=== PATIENT | male | born 1960 | race Caucasian/White ===

== ENCOUNTER 2021-04-10 20:03 | Inpatient (IN) | payer OTHER ==
[~2021-04-10] VITALS: Ht 188 cm; Wt 124.3 kg
[2021-04-10 20:37] VITALS: BP 114/61
[2021-04-10 20:44] LABS: ABSOLUTE EOSINOPHILS 0.1 thou/uL (0.0-0.7); ABSOLUTE LYMPHOCYTES 2.8 thou/uL (0.8-5.3); ABSOLUTE MONOCYTES 0.5 thou/uL (0.0-1.2); ABSOLUTE NEUTROPHILS 3.1 thou/uL (1.6-8.1); BASOPHILS 0.3 %; EOSINOPHILS 1.1 %; HEMATOCRIT 32.9 % (42.0-52.0); HEMOGLOBIN 10.8 gm/dL (14.0-18.0); LYMPHOCYTES 43.2 %; MCH 32.6 pg (26.0-34.0); MCHC 32.9 g/dL (28.0-37.0); MONOCYTES 7.1 %; MPV 7.6 fl. (7.2-11.1); NUCLEATED RBCS 0 /100WBC; PLATELET COUNT* 208 thou/uL (150-400); POLYS 48.3 %; RBC 3.32 mil/uL (4.50-6.00); RDW-CV 15.2 % (10.5-14.5); WBC 6.5 thou/uL (4.0-11.0)
[2021-04-10] MEDS ORDERED: LOPRESSOR50 MG PO (20:44)
[2021-04-10] MEDS ORDERED: KLOR-CON M2020 MEQ PO (20:44)
[2021-04-10] MEDS ORDERED: LIPITOR40 MG PO (20:45)
[2021-04-10] MEDS ORDERED: ZETIA10 MG PO (20:45)
[2021-04-10] MEDS ORDERED: FUROSEMIDE 40 M40 M1 PO (20:46)
[2021-04-10] MEDS ORDERED: COZAAR 25 MG TA25 M2 PO (20:47)
[2021-04-10] MEDS ORDERED: CORTISPORIN OTI10 ML OTIC (20:48)
[2021-04-10] MEDS ORDERED: LEVO-T75 MCG PO (20:48)
[2021-04-10] MEDS ORDERED: SINEMET 25-1001 EAC1 PO (20:48)
[2021-04-10 20:50] LABS: CALCIUM 8.8 mg/dL (8.5-10.1); CREATININE 1.5 mg/dL (0.6-1.3); POTASSIUM 4.3 mmol/L (3.5-5.1)
[2021-04-10 20:52] LABS: PROTIME 10.7 Seconds (9.20-11.50)
[2021-04-10 21:00] LABS: ALBUMIN 4.3 g/dL (3.4-5.0); TOTAL BILIRUBIN 0.5 mg/dL (<0.1-1.0); TOTAL PROTEIN 7.9 g/dL (6.4-8.2)
[2021-04-10 23:30] VITALS: BP 147/86
[2021-04-11] VITALS (7 sets, daily range): BP systolic 119–186; BP diastolic 58–101
[2021-04-11 04:29] LABS: URINE BILIRUBIN NEGATIVE (Negative); URINE BLOOD TRACE (Negative); URINE CLARITY CLEAR; URINE COLOR YELLOW; URINE GLUCOSE-RANDOM NEGATIVE (Negative); URINE KETONES NEGATIVE (Negative); URINE LEUKOCYTES-REFLEX NEGATIVE (Negative); URINE NITRITE-REFLEX NEGATIVE (Negative); URINE PROTEIN 2+ (Negative); URINE UROBILINOGEN 0.2 E.U./dl (0.2-1.0)
[2021-04-11 05:41] LABS: SQUAMOUS 0-3 Few /LPF (0-3)
[2021-04-11 05:42] LABS: HYALINE CASTS 0-3 Few /LPF (None Seen); WBC CASTS 0-3 /LPF
[2021-04-11 05:43] LABS: BACTERIA-REFLEX 1-9 Few /HPF (None Seen); CRYSTALS None Seen /LPF (None Seen); URINE RBC 0-2 Rare /HPF (0-2)
--- NOTE | 2021-04-11 11:51 | EKG ---
[place] [address] ELECTROCARDIOGRAM REPORT Name: ALLYN MELENDREZ Room: [address] IN [facility]#: [id number] Admission: 04/11/21 Attend Phys: Darinel Portillo, Discharge: Date of : 58 Date of Service: 04/10/212024 Report #: [id number] THIS REPORT FOR: //name// [facility] ED Test Date: 2021-04-10 Test Time: 20:25:10 Pat Name: ALLYN MELENDREZ Department: Room: [facility] Gender: M [employer]: JIM : 1960 Requested By: Rashida Little Order Number: [id number] MD: Nehemias Tinoco Measurements Intervals [place] Rate: 73 P: 43 [place]: 209 QRS: -4 QRSD: 87 T: 44 QT: 433 QTc: 478 Interpretive Statements Sinus rhythm Borderline prolonged QT interval No previous ECG available for comparison Electronically Signed On 04-11-2021 11:51:13 CDT by Nehemias Tinoco [email or web address] <ELECTRONICALLY SIGNED> By: Sera Tinoco MD, [facility] 04/11/21 1151 24 24 Sera Tinoco MD, [facility] /EPI
[2021-04-11 12:04] LABS: ABSOLUTE LYMPHOCYTES 1.7 thou/uL (0.8-5.3); ABSOLUTE MONOCYTES 0.6 thou/uL (0.0-1.2); ABSOLUTE NEUTROPHILS 4.6 thou/uL (1.6-8.1); BASOPHILS 0.4 %; EOSINOPHILS 0.3 %; HEMATOCRIT 34.7 % (42.0-52.0); HEMOGLOBIN 11.7 gm/dL (14.0-18.0); LYMPHOCYTES 25.1 %; MCH 32.9 pg (26.0-34.0); MCHC 33.6 g/dL (28.0-37.0); MONOCYTES 8.6 %; MPV 7.4 fl. (7.2-11.1); NUCLEATED RBCS 0 /100WBC; PLATELET COUNT* 204 thou/uL (150-400); POLYS 65.6 %; RBC 3.55 mil/uL (4.50-6.00); RDW-CV 15.3 % (10.5-14.5); WBC 6.9 thou/uL (4.0-11.0)
[2021-04-11 12:18] LABS: ALBUMIN 4.3 g/dL (3.4-5.0); CREATININE 1.6 mg/dL (0.6-1.3); POTASSIUM 5.6 mmol/L (3.5-5.1); TOTAL BILIRUBIN 0.8 mg/dL (<0.1-1.0); TOTAL PROTEIN 8.1 g/dL (6.4-8.2)
[2021-04-12] VITALS: BP 154/68
[2021-04-12 02:50] LABS: AMP/METHAMP Negative (Negative); BARBITURATES Negative (Negative); BENZODIAZEPINES Negative (Negative); COCAINE Negative (Negative); METHADONE Negative (Negative); OPIATES Negative (Negative); PCP Negative (Negative); THC Negative (Negative)
[2021-04-12 04:00] VITALS: BP 141/70
[2021-04-12 04:18] LABS: CHOLESTEROL 191 mg/dL (<200); HDL CHOLESTEROL 85 mg/dL (>40); LDL CHOLESTEROL 79 mg/dL (<100); TC:HDL 2.2 Ratio (Not establshd); TRIGLYCERIDE 138 mg/dL (<150); VLDL 28 mg/dL (<40)
[2021-04-12 04:23] LABS: SERUM ASSESSMENT Clear
[2021-04-12 04:59] LABS: CALCIUM 8.6 mg/dL (8.5-10.1); CREATININE 1.1 mg/dL (0.6-1.3); PHOSPHORUS* 3.2 mg/dL (2.5-4.9)
[2021-04-12 08:00] VITALS: BP 173/99
[2021-04-12] MEDS ORDERED: LEVO-T100 MCG PO (09:42)
[2021-04-12] MEDS ORDERED: ASA81BEC PO (09:42)
[2021-04-12] MEDS ORDERED: NORVASC5 MG PO (09:42)
[2021-04-12] MEDS ORDERED: MACROBID 100 M100 MG PO (09:42)
[2021-04-12 09:59] VITALS: BP 173/99
[2021-04-12 12:18] VITALS: BP 172/94
[2021-04-12] MEDS ORDERED: FOLIC ACID1 MG PO (12:46)
== END 2021-04-12 12:55 | disposition home or self-care (01) | DRG 682 ==
LOC: M.ERS 20:03 → M.TBA-ER 22:23 → M.2W 04-11 00:39
PROVIDERS: Emergency Medicine; Internal Medicine; Psychiatry & Neurology Neurology; ADMIT Internal Medicine; ATTEND Internal Medicine
DX: N17.0 Acute kidney failure with tubular necrosis (principal); G93.41 Metabolic encephalopathy; N39.0 Urinary tract infection, site not specified; G45.9 Transient cerebral ischemic attack, unspecified; Z20.822 Contact with and (suspected) exposure to COVID-19; Z87.891 Personal history of nicotine dependence; E78.00 Pure hypercholesterolemia, unspecified; B96.89 Other specified bacterial agents as the cause of diseases classified elsewhere; E03.9 Hypothyroidism, unspecified; D64.9 Anemia, unspecified; E78.5 Hyperlipidemia, unspecified; I25.10 Atherosclerotic heart disease of native coronary artery without angina pectoris; I10 Essential (primary) hypertension; Z82.49 Family history of ischemic heart disease and other diseases of the circulatory system; Z79.82 Long term (current) use of aspirin; Z79.899 Other long term (current) drug therapy